=== PATIENT | male | born 1955 | race Caucasian/White ===

== ENCOUNTER 2021-10-28 09:01 | Outpatient (CLI) | payer MEDICARE, OTHER, SELFPAY ==
--- NOTE | 2021-10-28 09:40 | RAD_ITS ---
PROCEDURE: Fluoroscopic guided right shoulder Injection DATE: 10/28/2021. INDICATION: Male, 66 years old. Chronic right shoulder pain. PHYSICIAN: Jose De Jesus Eduardo M.D. MEDICATIONS: 12 mg of BETAMETHASONE and 4 cc of 1% LIDOCAINE. 2% lidocaine administered subcutaneously for local anesthesia. ACCESS SITE: Right shoulder. NEEDLE: 22-gauge spinal needle. FLUOROSCOPY TIME (if supplied): (0:36) minutes/seconds. One image was obtained. FINDINGS: The risks, benefits, and alternatives to the procedure were explained to the patient. The specific risks of bleeding, infection, and neurovascular injury were detailed and accepted. Witnessed informed consent was obtained. A 22-gauge spinal needle was positioned under radiographic fluoroscopic localization. Approximately 2 cc ISOVUE-300 instilled for localization purposes. Medication was then injected. The patient tolerated the procedure well without any immediate complications. RAD/Inj/Asp Reagan Jt Should/Hip/Knee IMPRESSION: 1. Successful fluoroscopic guided right shoulder injection. Electronically Signed: Jose De Jesus Eduardo MD at 10:33 EDT ,
[2021-10-28] MEDS: Lidocaine 1% (20 ml mdv) 20 ML Vial 4 ML INFILT (09:48)
[2021-10-28] MEDS: Betamethasone/Betamethasone 30 MG/5 ML Vial 12 MG INTRAARTIC (09:48)
[2021-10-28] MEDS: Lidocaine 2% (5ml sdv) 5 ML VIAL.MPF INFILT (09:48)
== END 2021-10-28 23:59 | disposition home or self-care (01) ==
LOC: RAD 09:09
PROVIDERS: Referring Provider Specialist; Visit Provider Specialist
DX: M19.011 Primary osteoarthritis, right shoulder (principal)
CPT/HCPCS: 20610; 77002; Q9965; J0702

== ENCOUNTER → 2021-12-28 | Outpatient (CLI) | payer MEDICARE, OTHER, SELFPAY ==
--- NOTE | 2021-12-28 13:00 | NEURO_ITS ---
NCS and/or EMG Patient Report Ordering Doctor: Ian Rodrigez DATE OF SERVICE: 12/28/21 Papa presents for electrodiagnostic testing of the upper limbs. He reports numbness and tingling in both hands. He reports intermittent neck pain with radiation into the upper limbs. Electrodiagnostic findings: Right median motor nerve demonstrates normal distal latency, amplitude and conduction velocity. Normal left median motor response. Normal median and ulnar F waves. Ulnar motor response is normal bilaterally inc luding conduction across the elbow. Sensory responses are within normal limits. On needle EMG, all muscles tested in the upper limbs showed no evidence of denervation with normal motor unit action potentials. No denervation noted in the cervical paraspinals. Electrodiagnostic impression: There is a normal electrodiagnostic study of the upper limbs. There is no electrodiagnostic evidence for peripheral neuropathy including carpal tunnel or cubital tunnel syndrome. There is no electrodiagnostic evidence for cervical radiculopathy.
== END | disposition home or self-care (01) ==
LOC: PSN 10:00
PROVIDERS: PCP Orthopaedic Surgery; Referring Provider Orthopaedic Surgery; Visit Provider Orthopaedic Surgery
DX: M47.22 Other spondylosis with radiculopathy, cervical region (principal); R20.2 Paresthesia of skin
CPT/HCPCS: 95886; 95913

== ENCOUNTER 2022-10-03 13:00 | Outpatient (RCR) | payer MEDICARE, OTHER, SELFPAY ==
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
--- NOTE | 2022-10-03 14:42 | HP.PTDCSUM ---
It has been my pleasure to treat RENÉ SOUZA referred by Dr. Ian Rodrigez DO, with the diagnosis of SPINAL STENOSIS ,CERVICAL ,SPONDYLOSIS WITH RADICULOPATHY ,SPONDYLOTHESEIS for a total of 9 visit(s). Discharge Date: 10/03/22 Please see the following information for a summary of their discharge status. Subjective: Doing okay ,symptoms not better with paresthesia/tingling. in hands ..balance is better. weakness in arms some better % Improvement: 25 Objective/Function: POSTURE: rounded shoulders head forward. NEURO: C/O paresthesia/tingling in hands unchanged with manual cervical traction ,reflexes C5-6-7 hyperreflexia. CERVICAL ROM: flexion min loss extension min loss ,rotation/lateral flexion mod loss. 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 MMT: GROSSLY 4-/5 UE. Goal 1:: I with HEP for cervical spine. Goal Progress: Goal Met Goal 2:: Patient demonstrate 50% improvement with increase function and less pain. 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 Goal Progress: Progressing Plan: D/C TO GYM PROGRAM WITJ POSTURE/BALANCE AND OVERALL STRENGTHENING Discharge Comments: HEP If there are questions or concerns regarding this patient's physical therapy, please feel free to call me at [phone]. Thank you for the referral of this patient. Sincerely, Juwan Burton, PT, Cert MDT, OCS Balance/Gait/Functional tests - Balance/Special Test Scores Oswestry Neck Score: 11
== END 2022-10-03 19:00 | disposition home or self-care (01) ==
LOC: PT 13:00
PROVIDERS: PCP Orthopaedic Surgery; Referring Provider Orthopaedic Surgery; Visit Provider Orthopaedic Surgery
DX: M48.02 Spinal stenosis, cervical region (principal); M47.22 Other spondylosis with radiculopathy, cervical region; M43.12 Spondylolisthesis, cervical region
CPT/HCPCS: 97110; 97162

== ENCOUNTER 2025-05-01 13:30 | Outpatient (RCR) | payer MEDICARE, OTHER, SELFPAY ==
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
--- NOTE | 2025-05-01 14:29 | HP.PTDCSUM ---
Discharge Summary D/C summary: It has been my pleasure to treat RENÉ SOUZA referred by Dr. Jack Washington MD, with the diagnosis of L TKA, R shoulder impingement for a total of 19 visit(s). Discharge Date: 05/01/25 Please see the following information for a summary of their discharge status. Subjective Subjective: Still has a little pain with standing from chair. I fel better in the knee. Can move knee without too much probleem. Mobility is good. No f/u with doctor.Gym exrcises going well on legs. R arm is weak. Knee 80% beetter, Shoulder is 66%. To Felix next week. Pain L kne: Pain Intensity (Out of 10): 1 R shoulder: Pain Intensity (Out of 10): 3 Overall Improvement % Improvement: 80 Objective Objective/Function: AROM L -2 to 130 , Shoulder AROM fucnitonal but pain cross body. Walking well adn slight wide ZACK but trendlenberg much better adn I with gait. 4/5 strength B knees ext adn flexion and shoulder flexion weaker R vs L but funcitonal. Swinging golf club well at home. Goals Goal 1:: Walk without trendelenberg gait or AD community confidently Goal Progress: met Goal 2:: I approrpiate LE streetching and strength and RC streength ex in gym adn HEP to manage situation Goal Progress: Goal Met Goal 3:: Golf swing without heesitation Goal Progress: Goal Met Goal 4:: 25 or btter on WOMAC and 15 or better on quickdash Goal Progress: Progressing Goal 5:: Pt feel 75% beette rin ovrall mobility and strength Goal Progress: Goal Met Plan Plan: d/c to gyma dn HEP D/C Information Discharge Comments: Pt to shoulder doctor next week for options, no f/u with knee doctor but will continuee HEP d/c sentence: If there are questions or concerns regarding this patient's physical therapy, please feel free to call me at [phone]. Thank you for the referral of this patient. Sincerely, Raffaele Olguin, DPT, OCS, CSCS Balance/Gait/Functional tests Balance/Special Test Scores Quick DASH Score: 43.1800 WOMAC Total Score: 27 WOMAC Percentage: 71.8800 Improvement % Improvement: 80
== END 2025-05-01 19:00 | disposition home or self-care (01) ==
LOC: PT 13:30
PROVIDERS: PCP Orthopaedic Surgery; Referring Provider Orthopaedic Surgery; Visit Provider Orthopaedic Surgery
DX: Z96.652 Presence of left artificial knee joint (principal)
CPT/HCPCS: 97110; 97140; 97163; 97164; 97530